=== PATIENT | female | born 1985 | race Two or more races ===

== ENCOUNTER 2017-02-01 02:13 | Emergency (ER) | payer MEDICAID ==
[~2017-02-01] VITALS: Ht 157.5 cm; Wt 59.9 kg
[2017-02-01 02:18] VITALS: BP 114/81
== END 2017-02-01 02:50 | disposition home or self-care (01) ==
LOC: ER 02:22
DX: H66.92 Otitis media, unspecified, left ear (principal)

== ENCOUNTER 2017-05-30 00:50 | Inpatient (IN) | payer MEDICAID ==
[~2017-05-30] VITALS: Ht 157.5 cm; Wt 64.9 kg
[2017-05-30] MEDS ORDERED: CETI1TAB36 PO (01:27)
[2017-05-30] MEDS ORDERED: PREN-153 OR (01:27)
[2017-05-30 02:37] LABS: Urine Bacteria NONE SEEN /hpf (None Seen); Urine Blood 3+ /uL (Negative); Urine Specific Gravity 1.012 (1.001-1.035); Urine WBC 225 /hpf (0 - 5)
[2017-05-30 02:50] LABS: Alcohol, Urine < 3.0 mg/dL (0-5); Amphetamine Screen, Urine NEGATIVE (NEGATIVE); Barbiturate Scree,Urine NEGATIVE (NEGATIVE); Benzodiazephine Screen, Urine NEGATIVE (NEGATIVE); Cannabinoid Screen, Urine NEGATIVE (NEGATIVE); Cocaine Screen, Urine NEGATIVE (NEGATIVE); Opiate Scree,Urine NEGATIVE (NEGATIVE); Phencyclidine Screen, Urine NEGATIVE (NEGATIVE)
[2017-05-30] MEDS ORDERED: LACTATED RINGER'S 1,000 ML IV SCH (03:40)
[2017-05-30] MEDS ORDERED: LACT. RINGERS/OXYTOCIN 20UNITS 1,000 ML IV SCH (03:40)
[2017-05-30] MEDS ORDERED: WITCH HAZEL-GLYCERIN PAD TOP PRN (03:45)
[2017-05-30] MEDS ORDERED: PHISODERM TOP SOLN 240ML BTL TOP PRN (03:45)
[2017-05-30] MEDS ORDERED: NALBUPHINE HCL 10 MG/1ml INJECTION IV PRN (03:45)
[2017-05-30] MEDS ORDERED: METHYLERGONOVINE MALEATE 0.2 MG/ML AMP IM PRN (03:45)
[2017-05-30] MEDS ORDERED: LIDOCAINE 2%HCL (LOCAL ANESTH.) INJ 20ML MDV IJ PRN (03:45)
[2017-05-30] MEDS ORDERED: DERMOPLAST 60ML BOTTLE TOP PRN (03:45)
[2017-05-30 04:14] LABS: Basophils # (auto) 0.1 uL; Basophils % (auto) 0.4 % (0.0-2.0); Eosinophils # (auto) 0.1 uL; Hematocrit 37.5 % (36.0-46.0); Hemoglobin 12.7 g/dL (12.2-16.2); Lymphocytes # (auto) 2.5 uL; Lymphocytes % (auto) 17.1 % (10.0-50.0); Mean Corpuscular Hemoglobin 29.2 pg (28.0-32.0); Mean Corpuscular Hgb Conc. 33.8 g/dL (32.0-36.0); Mean Corpuscular Volume 86.4 fL (80.0-100.0); Monocytes # (auto) 0.7 uL; Monocytes % (auto) 4.7 % (0.0-12.0); Neutrophils # (auto) 11.3 uL; Neutrophils % (auto) 76.8 % (37.0-80.0); Platelet Count (auto) 229 10^3/uL (140-450); Red Blood Cells 4.34 10^6/uL (4.0-5.20); Red Cell Distribution Width 14.2 % (11.8-14.3); White Blood Cell 14.7 10^3/uL (4.4-10.8)
[2017-05-30 04:28] LABS: INR 0.87 (0.9-1.15); Partial Thromboplastin Time 28.3 sec (22.64-33.71); Prothrombin Time 9.5 sec (9.37-12.3)
[2017-05-30 04:31] LABS: Albumin 2.8 g/dL (3.4-5.0); BUN/Creatinine Ratio 11.9; Calcium 9.1 mg/dL (8.5-10.1); Potassium 3.8 mmol/L (3.5-5.1)
[2017-05-30 04:34] LABS: Bilirubin, Total 0.3 mg/dL (0.2-1.0); Total Protein 6.9 g/dL (6.4-8.2)
[2017-05-30] MEDS ORDERED: PROMETHAZINE HCL 25 MG/ML 1ML IM PRN (04:45)
[2017-05-30] MEDS ORDERED: LACT. RINGERS/OXYTOCIN 20UNITS 500 ML IV ONE (06:52)
[2017-05-30] MEDS ORDERED: ACETAMINOPHEN 325 MG TAB PO PRN (07:00)
[2017-05-30] MEDS ORDERED: IBUPROFEN 600 MG TAB PO ONE (07:23)
[2017-05-30] MEDS: DOCUSATE CALCIUM 240 MG CAP PO SCH (09:43)
[2017-05-30] MEDS: IBUPROFEN 600 MG TAB PO PRN ×3 (12:28→19:57)
[2017-05-30 12:29] VITALS: BP 106/59
[2017-05-30 16:00] VITALS: BP 94/55
[2017-05-30] MEDS ORDERED: TETANUS-DIPTH-ACEL PERTUSSIS 0.5ML SYRG IM ONE (17:00)
[2017-05-30 19:36] VITALS: BP 92/56
[2017-05-30 22:30] VITALS: BP 89/52
[2017-05-30 23:32] VITALS: BP 89/52
[2017-05-31 00:09] VITALS: BP 99/56
[2017-05-31 03:36] VITALS: BP 96/54
[2017-05-31] MEDS: IBUPROFEN 600 MG TAB PO PRN (06:40)
[2017-05-31 08:11] VITALS: BP 102/56
[2017-05-31] MEDS: DOCUSATE CALCIUM 240 MG CAP PO SCH (10:07)
== END 2017-05-31 10:35 | disposition home or self-care (01) | DRG 560 ==
LOC: LDRP 00:50 → OBSVTOIN 03:25 → LDRP 06:06
PROVIDERS: ADMIT Obstetrics & Gynecology; ATTEND Obstetrics & Gynecology
PROC: 10E0XZZ Delivery of Products of Conception, External Approach (ICD-10-PCS; principal; 2017-05-30)
PROC: 0W8NXZZ Division of Female Perineum, External Approach (ICD-10-PCS; 2017-05-30)
PROC: 0KQM0ZZ Repair Perineum Muscle, Open Approach (ICD-10-PCS; 2017-05-30)
DX: O77.0 Labor and delivery complicated by meconium in amniotic fluid (principal); O69.81X0 Labor and delivery complicated by cord around neck, without compression, not applicable or unspecified; O70.1 Second degree perineal laceration during delivery; Z37.0 Single live birth; Z3A.39 39 weeks gestation of pregnancy; Z23 Encounter for immunization
CPT/HCPCS: 36415; 59025; 59409; 76815; 76818; 80053; 80307; 81001; 81002; 85025; 85610; 85730; 86850; 86900; 86901; 90715; 96365; 96366; 96372; G0378; J2590